=== PATIENT | male | born 2000 | race African-American/Black ===

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

== ENCOUNTER → 2020-02-02 | Outpatient (CLI) | payer OTHER, BC | LOC: COL.RAD 07:40 | DX: S43.401A Unspecified sprain of right shoulder joint, initial encounter (principal) | CPT/HCPCS: A9585; Q9967 ==